=== PATIENT | male | born 1940 | race Caucasian/White ===

== ENCOUNTER 2018-10-15 11:43 | Emergency (ER) | payer OTHER, MEDICARE, BC ==
--- NOTE | 2018-10-15 12:38 | CR ---
Clinical history: 78-year-old male lower left chest pain (leaning over "gator", slipped and hurt a "pop"). Interpretation: PA chest and left rib detail films (x2) reveal subtle break (cortical "step") in the costochondral cartilage, lower left rib, anterolaterally. Osteopenia and apparent insufficiency compression fractures of vertebral bodies at the thoracolumbar juncture. No other left rib fracture, signs of underlying lung contusion, atelectasis or ipsilateral dependent pleural effusion. No pneumothorax or pneumomediastinum. Normal cardiac silhouette without cephalization of vascular flow, signs of alveolar edema or dependent pleural effusion. Dense curvilinear calcifications arch of the thoracic aorta. CONCLUSION: Suspicious (see above).
--- NOTE | 2018-10-15 13:02 | EDM.PDOC ---
ED HPI GENERAL MEDICAL PROBLEM - General Stated Complaint: RIBS GOT HURT AT WORK, LEFT SIDE Time Seen by Provider: 10/15/18 12:50 Source of Information: Reports: Patient History Limitations: Reports: No Limitations - History of Present Illness INITIAL COMMENTS - FREE TEXT/NARRATIVE: This 78 yo male patient reports to the ED with left anterior rib pain. The patient reports he was working for the [email or web address] when he fell against part of the mower. The patient reports he heard a "pop" during the fall and has experienced increased pain in the left ribs since the fall. The patient denies any additional symptoms or further concerns. Onset: Today Duration: Minutes: Location: Reports: Chest (left anterior chest) Quality: Reports: Ache, Sharp Severity: Moderate Improves with: Reports: None Worsens with: Reports: None Context: Reports: Trauma (fall on the left ribs) Associated Symptoms: Reports: No Other Symptoms Left Lower Chest Pain Score (Numeric/FACES): 8 Past Medical History Cardiovascular History: Reports: Hypertension Neurological History: Reports: CVA Endocrine/Metabolic History: Reports: Hyperthyroidism Oncologic (Cancer) History: Reports: Other (See Below) Other Oncologic History: throat - Past Surgical History HEENT Surgical History: Reports: Other (See Below) Other HEENT Surgeries/Procedures: one vocal cord removed Social & Family History - Tobacco Use Smoking Status *Q: Never Smoker - Recreational Drug Use Recreational Drug Use: No Review of Systems - Review of Systems Review Of Systems: ROS reveals no pertinent complaints other than HPI. ED EXAM, GENERAL - Physical Exam Exam: See Below Exam Limited By: No Limitations General Appearance: Alert, WD/WN, Moderate Distress Eye Exam: Bilateral Eye: EOMI, Normal Inspection, PERRL Ears: Normal External Exam, Normal Canal, Hearing Grossly Normal, Normal TMs Nose: Normal Inspection, Normal Mucosa, No Blood Throat/Mouth: Normal Inspection, Normal Lips, Normal Teeth, Normal Gums, Normal Oropharynx, Normal Voice, No Airway Compromise Head: Atraumatic, Normocephalic Neck: Normal Inspection, Supple, Non-Tender, Full Range of Motion Respiratory/Chest: No Respiratory Distress, Lungs Clear, Normal Breath Sounds, No Accessory Muscle Use, Other (left lower rib tenderness) Cardiovascular: Normal Peripheral Pulses, Regular Rate, Rhythm, No Edema, No Gallop, No JVD, No Murmur, No Rub GI/Abdominal: Normal Bowel Sounds, Soft, Non-Tender, No Organomegaly, No Distention, No Abnormal Bruit, No Mass (Male) Exam: Deferred Rectal (Males) Exam: Deferred Back Exam: Normal Inspection, Full Range of Motion, NT Extremities: Normal Inspection, Normal Range of Motion, Non-Tender, Normal Capillary Refill, No Pedal Edema Neurological: Alert, Oriented, CN II-XII Intact, Normal Cognition, Normal Gait, Normal Reflexes, No Motor/Sensory Deficits Psychiatric: Normal Affect, Normal Mood Skin Exam: Warm, Dry, Intact, Normal Color, No Rash Lymphatic: No Adenopathy Course - Vital Signs Last Recorded V/S: Last Vital Signs Temp 37.1 C 10/15/18 12:06 Pulse 70 10/15/18 12:06 Resp 16 10/15/18 12:06 BP 119/73 10/15/18 12:06 Pulse Ox 90 L 10/15/18 12:06 Departure - Departure Time of Disposition: 12:59 Disposition: Home, Self-Care 01 Condition: Fair Clinical Impression: Left rib fracture Qualifiers: Encounter type: initial encounter Rib fracture type: single rib Fracture type: closed Qualified Code(s): S22.32XA - Fracture of one rib, left side, initial encounter for closed fracture - Discharge Information *PRESCRIPTION DRUG MONITORING PROGRAM REVIEWED*: Not Applicable *COPY OF PRESCRIPTION DRUG MONITORING REPORT IN PATIENT RUSLAN: Not Applicable Instructions: Rib Fracture, [id number] Forms: ED Department Discharge Care Plan Goals: The patient was advised of the examination and x-ray results during the visit. The patient was encouraged to rest and relax. The patient was encouraged to take Tylenol or ibuprofen for temporary symptom relief. If the patient has any additional symptoms or concerns, the patient should either return to the emergency department or visit his primary care facility.
== END 2018-10-15 13:11 | disposition home or self-care (01) ==
LOC: DL.ED 11:43
DX: S22.32XA Fracture of one rib, left side, initial encounter for closed fracture (principal); I10 Essential (primary) hypertension; Z86.73 Personal history of transient ischemic attack (TIA), and cerebral infarction without residual deficits; W19.XXXA Unspecified fall, initial encounter; Y99.0 Civilian activity done for income or pay
CPT/HCPCS: 71101-LT; 99283-25

== ENCOUNTER 2019-07-31 06:41 | Emergency (ER) | payer MEDICARE, BC ==
--- NOTE | 2019-07-31 07:06 | EDM.PDOC ---
ED HPI GENERAL MEDICAL PROBLEM - General Chief Complaint: Genitourinary Problem Stated Complaint: NEEDS CATHEDER PUT IN Time Seen by Provider: 07/31/19 07:05 Source of Information: Reports: Patient, Family (), RN, RN Notes Reviewed History Limitations: Reports: No Limitations - History of Present Illness INITIAL COMMENTS - FREE TEXT/NARRATIVE: Pt presents to ER from home by POV with c/o being unable to pass any urine. Pt state symptoms began about a week ago with urinary frequency, urgency, and a weak urine stream. He was seen in clinic by Dr. Christopher on 07/29/19 and diagnosed with a UTI which was treated with Rocephin 1g IM x1 in clinic and an Rx for Doxycycline. Pt states his symptoms have worsened and his urine stream decreased to "dribbling" yesterday. He was referred to urology in [place], and was to have a CT Abd/Pelvis followed by an appointment with the urologist, but he cancelled due to winter road conditions. He denies fever or chills. Admits to B/L flank pain. Pt reports Hx of "prostate problems", and kidney stones. Onset: Gradual Duration: Constant, Getting Worse Location: Reports: Other (Urinary) Quality: Reports: Ache, Pressure Severity: Moderate Improves with: Reports: Other (Urination) Worsens with: Reports: None Associated Symptoms: Reports: No Other Symptoms Flank Pain Score (Numeric/FACES): 6 - Related Data Allergies Allergy/AdvReac Type Severity Reaction Status Date / Time No Known Allergies Allergy Verified 07/31/19 07:06 Home Meds: Home Meds Acetaminophen 500 mg PO Q6H PRN 07/31/19 [History] Albuterol [Ventolin HFA] 2 puff INH Q6H PRN 07/31/19 [History] Aspirin [Halfprin] 81 mg PO DAILY 07/31/19 [History] Doxycycline [Doxycycline Hyclate] 100 mg PO BID 07/31/19 [History] Levothyroxine 175 mcg PO ACBREAKFAST 07/31/19 [History] Metoprolol Succinate [Toprol XL 100mg] 100 mg PO BEDTIME 07/31/19 [History] Montelukast [Singulair] 10 mg PO BEDTIME 07/31/19 [History] Multivitamin [Daily Kary] 1 each PO DAILY 07/31/19 [History] Omeprazole 20 mg PO DAILY 07/31/19 [History] Polyethylene Glycol [Polyox Wsr-301] 8 oz PO ASDIRECTED 07/31/19 [History] Tamsulosin [Flomax] 0.4 mg PO DAILY 07/31/19 [History] cloNIDine [Catapres] 0.1 mg PO BID 07/31/19 [History] Past Medical History Cardiovascular History: Reports: Hypertension Respiratory History: Reports: COPD Genitourinary History: Reports: Prostate Disorder, Renal Calculus, Retention, Urinary Neurological History: Reports: CVA Endocrine/Metabolic History: Reports: Hyperthyroidism Oncologic (Cancer) History: Reports: Other (See Below) Other Oncologic History: throat - Past Surgical History HEENT Surgical History: Reports: Other (See Below) Other HEENT Surgeries/Procedures: one vocal cord removed Social & Family History - Family History Family Medical History: Noncontributory - Tobacco Use Smoking Status *Q: Former Smoker Tobacco Use Within Last Twelve Months: Cigarettes - Living Situation & Occupation Living situation: Reports: , with Spouse ED ROS GENERAL - Review of Systems Review Of Systems: Comprehensive ROS is negative, except as noted in HPI. ED EXAM, RENAL/ - Physical Exam Exam: See Below Exam Limited By: No Limitations General Appearance: Alert, WD/WN, No Apparent Distress Eye Exam: Bilateral Eye: Normal Inspection (No scleral icterus) Throat/Mouth: Normal Inspection Head: Atraumatic, Normocephalic Respiratory/Chest: No Respiratory Distress Cardiovascular: Regular Rate, Rhythm, No Edema GI/Abdominal: Normal Bowel Sounds, Soft, No Organomegaly, No Distention, No Abnormal Bruit, No Mass, Pelvis Stable, Tender (mild suprapubic tenderness, no palpable urinary bladder distention). No: Guarding, Rigid, Rebound Rectal (Males) Exam: Deferred Back Exam: CVA Tenderness (L) (mild), CVA Tenderness (R) (mild). No: Vertebral Tenderness Extremities: Normal Inspection Neurological: Alert, Oriented, No Motor/Sensory Deficits Psychiatric: Normal Mood Skin Exam: Warm, Dry, Intact, Normal Color, No Rash Course - Vital Signs Last Recorded V/S: Last Vital Signs Temp 98.2 F 07/31/19 07:02 Pulse 94 07/31/19 07:02 Resp 18 07/31/19 07:02 BP 106/65 07/31/19 07:02 Pulse Ox 93 L 07/31/19 07:02 - Orders/Labs/Meds Orders: Active Orders 24 hr Category Date Time Status Insert Swift Catheter [Insert Urinary Catheter] [OM.PC] Care 07/31/19 07:17 Ordered Stat Urinary Catheter Assessment [RC] ASDIRECTED Care 07/31/19 07:19 Active Abdomen Pelvis wo Cont [CT] Stat Exams 07/31/19 08:20 Taken CULTURE URINE [RM] Stat Lab 07/31/19 07:58 Received Labs: Laboratory Tests 07/31/19 07/31/19 07/31/19 Range/Units 07:38 07:38 07:58 WBC 16.8 H (5.0-10.0) 10^3/uL RBC 4.82 (4.6-6.2) 10^6/uL Hgb 14.3 (14.0-18.0) g/dL Hct 42.4 (40.0-54.0) % MCV 88.0 (80-100) fL MCH 29.7 (27.0-34.0) pg MCHC 33.7 (33.0-35.0) g/dL Plt Count 208 (150-450) 10^3/uL Neut % (Auto) 86.7 H (42.2-75.2) % Lymph % (Auto) 4.5 L (20.5-50.1) % [place] % (Auto) 8.5 H (2-8) % Eos % (Auto) 0.1 L (1.0-3.0) % Baso % (Auto) 0.2 (0.0-1.0) % Sodium 136 (135-145) mmol/L Potassium 3.8 (3.6-5.0) mmol/L Chloride 102 (101-111) mmol/L Carbon Dioxide 26.0 (21.0-31.0) mmol/L Anion Gap 11.8 BUN 24 H (7-18) mg/dL Creatinine 1.0 (0.6-1.3) mg/dL Est Cr Clr Drug Dosing 66.82 mL/min Estimated GFR (MDRD) > 60 Glucose 187 H (74-105) mg/dL Calcium 8.8 (8.4-10.2) mg/dl Urine Color Yellow (YELLOW) Urine Appearance Slightly cloudy (CLEAR) Urine pH 6.0 (5.0-9.0) Ur Specific [place] 1.025 (1.005-1.030) Urine Protein 100 H (NEGATIVE) Urine Glucose (UA) 100 H (NEGATIVE) Urine Ketones Trace H (NEGATIVE) Urine Occult Blood Large H (NEGATIVE) Urine Nitrite Negative (NEGATIVE) Urine Bilirubin Small H (NEGATIVE) Urine Urobilinogen 0.2 (0.2-1.0) mg/dL Ur Leukocyte Esterase Small H (NEGATIVE) Urine RBC 50-75 H /HPF Urine WBC 10-20 H (0-5/HPF) /HPF Ur Epithelial Cells Moderate H (NOT SEEN) /HPF Urine Bacteria Few (0-FEW/HPF) /HPF Urine Mucus Occasional (NOT SEEN) /LPF - Radiology Interpretation Free Text/Narrative:: CT Abd/Pelvis: images pushed to [facility]. See radiologist's report. - Re-Assessments/Exams Free Text/Narrative Re-Assessment/Exam: 07/31/19 08:28 The pt informs me he has missed his CT Abd/Pelvic today. Today his urine is bloody, but does not look infected. I will obtain the CT here and push it to the [facility] so that he can keep the urology appointment for this afternoon. I will leave the Swift in so that he doesn't have to stop repeatedly to urinate on the trip to today, and the urologist can remove the catheter in clinic he indicated. Departure - Departure Time of Disposition: 09:21 Disposition: Home, Self-Care 01 Condition: Good Clinical Impression: Acute urinary retention, Flank pain Hematuria Qualifiers: Hematuria type: gross Qualified Code(s): R31.0 - Gross hematuria - Discharge Information *PRESCRIPTION DRUG MONITORING PROGRAM REVIEWED*: No *COPY OF PRESCRIPTION DRUG MONITORING REPORT IN PATIENT RUSLAN: No Instructions: Acute Urinary Retention, Male, [id number], Indwelling Urinary Catheter Care, Adult, Flank Pain, Adult, Hematuria, Adult Forms: ED Department Discharge Additional Instructions: Rx: Hydrocodone APAP 5mg/325mg *Do not drive while taking this medication. Drink plenty of water. Follow up today with the urologist as scheduled. Your CT scan has been electronically pushed to the [facility] P[facility] imaging system in [place]. Sepsis Event Note - Focused Exam Vital Signs: Vital Signs Temp Pulse Resp BP Pulse Ox 07/31/19 07:02 98.2 F 94 18 106/65 93 L Date Exam was Performed: 07/31/19 Time Exam was Performed: 09:20 - My Orders Last 24 Hours: My Active Orders 07/31/19 07:17 Insert Swift Catheter [Insert Urinary Catheter] [OM.PC] Stat 07/31/19 07:19 Urinary Catheter Assessment [RC] ASDIRECTED 07/31/19 07:58 CULTURE URINE [RM] Stat 07/31/19 08:20 Abdomen Pelvis wo Cont [CT] Stat - Assessment/Plan Last 24 Hours: My Active Orders 07/31/19 07:17 Insert Swift Catheter [Insert Urinary Catheter] [OM.PC] Stat 07/31/19 07:19 Urinary Catheter Assessment [RC] ASDIRECTED 07/31/19 07:58 CULTURE URINE [RM] Stat 07/31/19 08:20 Abdomen Pelvis wo Cont [CT] Stat
[2019-07-31 08:05] LABS: ANION GAP 11.8; CHLORIDE,CL 102 mmol/L (101-111); SODIUM,NA 136 mmol/L (135-145)
== END 2019-07-31 09:37 | disposition home or self-care (01) ==
LOC: DL.ED 06:41
DX: R33.9 Retention of urine, unspecified (principal); R31.0 Gross hematuria; I10 Essential (primary) hypertension; J44.9 Chronic obstructive pulmonary disease, unspecified; N42.9 Disorder of prostate, unspecified; Z86.73 Personal history of transient ischemic attack (TIA), and cerebral infarction without residual deficits; Z79.82 Long term (current) use of aspirin; Z79.899 Other long term (current) drug therapy; Z87.891 Personal history of nicotine dependence
CPT/HCPCS: 36415; 51702; 74176; 80048; 81001; 85025; 87086; 99283; 99284-25

== ENCOUNTER 2023-03-10 12:04 | Inpatient (IN) | payer MEDICARE, BC ==
[2023-03-10] MEDS ORDERED: Sodium Chloride 0.9% 10 ML Syringe FLUSH PRN (12:18)
[2023-03-10] MEDS ORDERED: Magnesium Sulfate/Water 2 GM in Premix Bag 1 BAG IV ONE (12:18)
[2023-03-10] MEDS ORDERED: methylPREDNISolone Sodium Succinate 125 MG/2 ML SDV IVPUSH ONE (12:19)
[2023-03-10] MEDS: Albuterol/Ipratropium 3.0-0.5 MG/3 ML Neb Soln NEB ONE ×2 (12:27→14:11)
[2023-03-10 12:37] LABS: HEMOGLOBIN 16.3 g/dL (14.0-18.0); MEAN CORPUSCULAR HEMOGLOBIN 30.9 pg (27.0-34.0); MEAN CORPUSCULAR HGB CONC 33.3 g/dL (33.0-35.0); PLATELET COUNT,PLT 218 10^3/uL (150-450); RED BLOOD CELL COUNT 5.27 10^6/uL (4.6-6.2); WHITE BLOOD CELL COUNT,WBC 8.8 10^3/uL (5.0-10.0)
[2023-03-10 12:39] LABS: BASOPHILS PERCENT AUTO 0.1 % (0.0-1.0); EOSINOPHILS PERCENT AUTO 0.1 % (1.0-3.0); NEUTROPHILS PERCENT AUTO 66.8 % (42.2-75.2)
[2023-03-10 12:53] LABS: ALANINE AMINOTRANSFERASE,ALT 40 U/L (16-63); ALBUMIN 3.3 g/dL (3.4-5.0); ALKALINE PHOSPHATASE 86 U/L (46-116); ANION GAP 11.1 mEq/L (7-13); ASPARTATE AMNIOTRANSFERASE,AST 25 U/L (15-37); BILIRUBIN TOTAL 0.4 mg/dL (0.2-1.0); BLOOD UREA NITROGEN,BUN 15 mg/dL (7-18); BUN/CREATININE RATIO 16.5 (No establ ref range); C-REACTIVE PROTEIN 2.93 ng/dL (<=0.30); CALCIUM 8.6 mg/dL (8.5-10.1); CARBON DIOXIDE,CO2 34 mmol/L (21-32); CHLORIDE,CL 98 mmol/L (98-107); CREATININE 0.91 mg/dL (0.70-1.30); GLUCOSE RANDOM 113 mg/dL (70-99); POTASSIUM,K 4.1 mmol/L (3.5-5.1); PROTEIN TOTAL,TP 7.1 g/dL (6.4-8.2); SODIUM,NA 139 mmol/L (136-145)
[2023-03-10 12:56] LABS: LACTIC ACID 1.1 mmol/L (0.4-2.0)
[2023-03-10 13:03] LABS: A/G RATIO 0.87; ESTIMATED GFR 85 mL/min (>=60)
[2023-03-10 13:14] LABS: LYMPHOCYTES % ATYPICAL MANUAL 3 %; LYMPHOCYTES PERCENT MAN 19 % (20-50); MONOCYTES PERCENT MAN 8 % (2-8); SEG NEUTROPHILS PERCENT MAN 70 % (42-75)
[2023-03-10] MEDS ORDERED: cefTRIAXone 2 GM Vial IVPUSH ONE (13:24)
[2023-03-10] MEDS ORDERED: Azithromycin 250 MG Tab PO ONE (13:43)
[2023-03-10] MEDS ORDERED: Albuterol/Ipratropium 3.0-0.5 MG/3 ML Neb Soln ONE (14:08)
[2023-03-10] MEDS ORDERED: Albuterol 0.083% 2.5 MG/3 ML Neb Soln NEB ONE (14:11)
[2023-03-10] MEDS ORDERED: Zolpidem 5 MG Tab PO PRN (14:45)
[2023-03-10] MEDS ORDERED: oxyCODONE 5 MG Tab PO PRN (14:45)
[2023-03-10] MEDS ORDERED: Docusate Sodium 100 MG Cap PO PRN (14:45)
[2023-03-10] MEDS ORDERED: Ondansetron 4 MG Tab.DIS PO PRN (14:45)
[2023-03-10] MEDS ORDERED: POLYETHYLENE GLYCOL 1 GM PO SCH (15:00)
[2023-03-10] MEDS: Albuterol/Ipratropium 3.0-0.5 MG/3 ML Neb Soln NEB PRN (17:20)
[2023-03-10] MEDS: methylPREDNISolone Sodium Succinate 125 MG/2 ML SDV IVPUSH SCH (19:57)
[2023-03-10] MEDS: Metoprolol Succinate 50 MG Tab.ER PO SCH (20:56)
[2023-03-10] MEDS: Montelukast 10 MG Tab PO SCH (20:57)
[2023-03-10] MEDS: Acetaminophen 500 MG Tab PO PRN (20:57)
[2023-03-10] MEDS ORDERED: cloNIDine 0.1 MG Tab PO ONE ×2 (21:15→23:45)
[2023-03-11] MEDS: methylPREDNISolone Sodium Succinate 125 MG/2 ML SDV IVPUSH SCH ×3 (05:03→20:17)
[2023-03-11] MEDS ORDERED: Non-Formulary Medication 1 Each (Levothyroxine [Levothyroxine] 175 MCG Tablet) PO SCH (06:00)
[2023-03-11 06:19] LABS: HEMATOCRIT 46.1 % (40.0-54.0); HEMOGLOBIN 15.8 g/dL (14.0-18.0); MEAN CORPUSCULAR HEMOGLOBIN 31.2 pg (27.0-34.0); MEAN CORPUSCULAR HGB CONC 34.3 g/dL (33.0-35.0); MEAN CORPUSCULAR VOLUME 90.9 fL (80-100); RED BLOOD CELL COUNT 5.07 10^6/uL (4.6-6.2); WHITE BLOOD CELL COUNT,WBC 4.9 10^3/uL (5.0-10.0)
[2023-03-11 06:30] LABS: ANION GAP 11.5 mEq/L (7-13); CALCIUM 8.3 mg/dL (8.5-10.1); CREATININE 0.78 mg/dL (0.70-1.30); EST CRCL DRUG DOSING (CG) 81.52 mL/min; POTASSIUM,K 4.5 mmol/L (3.5-5.1)
[2023-03-11] MEDS: Albuterol/Ipratropium 3.0-0.5 MG/3 ML Neb Soln NEB PRN ×4 (07:17→20:18)
[2023-03-11] MEDS: Enoxaparin 40 MG/0.4 ML Syringe SUBCUT SCH (09:00)
[2023-03-11] MEDS: Aspirin 81 MG Tab.EC PO SCH (09:00)
[2023-03-11] MEDS ORDERED: Benzonatate 100 MG Cap PO PRN (09:00)
[2023-03-11] MEDS: Nicotine 14 MG/24 Hr Patch TRDERM SCH (09:40)
[2023-03-11] MEDS: Formoterol/Mometasone 200-5 MCG 8.8 GM Inhaler IH SCH ×2 (09:58→18:04)
[2023-03-11] MEDS ORDERED: cloNIDine 0.1 MG Tab PO SCH (10:15)
[2023-03-11] MEDS ORDERED: Levothyroxine 100 MCG Tab PO SCH (10:30)
[2023-03-11] MEDS ORDERED: Tamsulosin 0.4 MG Cap.ER PO SCH (10:30)
[2023-03-11] MEDS ORDERED: Levothyroxine 75 MCG Tab PO SCH (10:30)
[2023-03-11] MEDS: Levothyroxine 75 MCG Tab PO SCH (11:47)
[2023-03-11] MEDS: Levothyroxine 100 MCG Tab PO SCH (11:48)
[2023-03-11] MEDS: cloNIDine 0.1 MG Tab PO SCH ×2 (11:48→20:18)
[2023-03-11] MEDS: Tamsulosin 0.4 MG Cap.ER PO SCH ×2 (11:48→20:17)
[2023-03-11] MEDS: Azithromycin 250 MG Tab PO SCH (13:54)
[2023-03-11] MEDS: cefTRIAXone 1 GM Vial IVPUSH SCH (13:55)
[2023-03-11] MEDS: Metoprolol Succinate 50 MG Tab.ER PO SCH (20:17)
[2023-03-11] MEDS: Montelukast 10 MG Tab PO SCH (20:18)
[2023-03-12] MEDS: Albuterol/Ipratropium 3.0-0.5 MG/3 ML Neb Soln NEB PRN ×4 (01:36→13:05)
[2023-03-12] MEDS: Acetaminophen 500 MG Tab PO PRN (04:41)
[2023-03-12] MEDS: methylPREDNISolone Sodium Succinate 125 MG/2 ML SDV IVPUSH SCH ×2 (04:41→13:57)
[2023-03-12] MEDS: Levothyroxine 75 MCG Tab PO SCH (05:39)
[2023-03-12] MEDS: Levothyroxine 100 MCG Tab PO SCH (05:39)
[2023-03-12] MEDS: Formoterol/Mometasone 200-5 MCG 8.8 GM Inhaler IH SCH (06:34)
[2023-03-12] MEDS: Nicotine 14 MG/24 Hr Patch TRDERM SCH (09:13)
[2023-03-12] MEDS: cloNIDine 0.1 MG Tab PO SCH (09:14)
[2023-03-12] MEDS: Aspirin 81 MG Tab.EC PO SCH (09:15)
[2023-03-12] MEDS: Enoxaparin 40 MG/0.4 ML Syringe SUBCUT SCH (09:15)
[2023-03-12] MEDS: Azithromycin 250 MG Tab PO SCH ×3 (09:15→09:27)
[2023-03-12] MEDS: Tamsulosin 0.4 MG Cap.ER PO SCH (09:15)
[2023-03-12] MEDS: cefTRIAXone 1 GM Vial IVPUSH SCH (17:07)
== END 2023-03-12 15:15 | disposition home health service (06) | DRG 193 ==
LOC: DL.ED 12:04 → DL.MS 13:47
PROVIDERS: ADMIT Hospitalist; ATTEND Hospitalist
DX: J18.9 Pneumonia, unspecified organism (principal); J96.01 Acute respiratory failure with hypoxia; J44.0 Chronic obstructive pulmonary disease with (acute) lower respiratory infection; J44.1 Chronic obstructive pulmonary disease with (acute) exacerbation; E05.90 Thyrotoxicosis, unspecified without thyrotoxic crisis or storm; J44.9 Chronic obstructive pulmonary disease, unspecified; I10 Essential (primary) hypertension; E03.9 Hypothyroidism, unspecified; Z99.81 Dependence on supplemental oxygen; F17.210 Nicotine dependence, cigarettes, uncomplicated; Z79.82 Long term (current) use of aspirin; Z79.899 Other long term (current) drug therapy; Z86.73 Personal history of transient ischemic attack (TIA), and cerebral infarction without residual deficits
CPT/HCPCS: 36415; 71045; 80048; 80053; 83605; 85025; 85027; 86140; 87040; 94010; 94060; 94640; 94664; 94667; 94668; 94760; 96365; 96375; 99223; 99233; 99239; 99284; 99285-25; A9270-GY; J0696; J1650; J2930; J3475; J3490; J7620-GY

== ENCOUNTER 2023-12-11 19:48 | Emergency (ER) | payer MEDICARE, BC ==
[2023-12-11 20:03] LABS: BASOPHILS PERCENT AUTO 0.8 % (0.0-1.0); EOSINOPHILS PERCENT AUTO 1.2 % (1.0-3.0); HEMATOCRIT 21.5 % (40.0-54.0); LYMPHOCYTES PERCENT AUTO 19.9 % (20.5-50.1); MEAN CORPUSCULAR HEMOGLOBIN 20.7 pg (27.0-34.0); MEAN CORPUSCULAR HGB CONC 28.8 g/dL (33.0-35.0); MEAN CORPUSCULAR VOLUME 71.9 fL (80-100); MONOCYTES PERCENT AUTO 15.2 % (2-8); NEUTROPHILS PERCENT AUTO 62.9 % (42.2-75.2); PLATELET COUNT,PLT 445 10^3/uL (150-450); RED BLOOD CELL COUNT 2.99 10^6/uL (4.6-6.2); WHITE BLOOD CELL COUNT,WBC 7.8 10^3/uL (5.0-10.0)
[2023-12-11 20:06] LABS: HEMOGLOBIN 6.2 g/dL (14.0-18.0)
[2023-12-11] MEDS: Iopamidol 612 MG/ML 100 ML Bottle IVPUSH ONE (20:07)
[2023-12-11] MEDS ORDERED: Pantoprazole 40 MG in Sodium Chloride 0.9% 100 ML IV SCH ×2 (20:15→20:45)
[2023-12-11 20:26] LABS: A/G RATIO 1.1; ALANINE AMINOTRANSFERASE,ALT 18 U/L (16-63); ALBUMIN 3.6 g/dL (3.4-5.0); ALKALINE PHOSPHATASE 75 U/L (46-116); ANION GAP 12.3 mEq/L (7-13); ASPARTATE AMNIOTRANSFERASE,AST 10 U/L (15-37); BILIRUBIN TOTAL 0.3 mg/dL (0.2-1.0); BLOOD UREA NITROGEN,BUN 20 mg/dL (7-18); BUN/CREATININE RATIO 20.8 (No establ ref range); CALCIUM 8.4 mg/dL (8.5-10.1); CARBON DIOXIDE,CO2 31 mmol/L (21-32); CHLORIDE,CL 101 mmol/L (98-107); CREATININE 0.96 mg/dL (0.70-1.30); GLUCOSE RANDOM 124 mg/dL (70-99); MAGNESIUM 1.9 mg/dL (1.8-2.4); POTASSIUM,K 4.3 mmol/L (3.5-5.1); SODIUM,NA 140 mmol/L (136-145)
[2023-12-11 20:27] LABS: ESTIMATED GFR 79 mL/min (>=60); ETHANOL BLOOD MEDICAL < 3 mg/dL (0)
[2023-12-11] MEDS: Pantoprazole 40 MG Vial IVPUSH ONE (20:32)
[2023-12-11] MEDS: Sodium Chloride 0.9% 1,000 ML IV ONE (20:32)
[2023-12-11 21:19] LABS: APPEARANCE,URINE CLOUDY (CLEAR); BILIRUBIN,URINE NEGATIVE (NEGATIVE); COLOR,URINE RED (YELLOW); GLUCOSE,URINE NEGATIVE (NEGATIVE); KETONES,URINE NEGATIVE (NEGATIVE); LEUKOCYTE ESTERASE,URINE NEGATIVE (NEGATIVE); NITRITE,URINE POSITIVE (NEGATIVE); OCCULT BLOOD,URINE LARGE (NEGATIVE); PH,URINE 5.5 (5.0-9.0); PROTEIN,URINE >=300 (NEGATIVE); UROBILINOGEN,URINE 0.2 mg/dL (0.2-1.0)
[2023-12-11 21:43] LABS: BACTERIA,URINE FEW /HPF (0-FEW/HPF); EPITHELIAL CELLS,URINE NOT SEEN /HPF (NOT SEEN); RBC,URINE PACKED /HPF (0-5); WBC,URINE 0-5 /HPF (0-5/HPF)
[2023-12-11] MEDS: Ondansetron 4 MG/2 ML SDV IVPUSH ONE (23:05)
[2023-12-11] MEDS: Morphine 2 MG/ML SYRINGE IVPUSH ONE (23:05)
== END 2023-12-11 23:57 ==
LOC: DL.ED 19:48
DX: S09.90XA Unspecified injury of head, initial encounter (principal); D50.9 Iron deficiency anemia, unspecified; E86.9 Volume depletion, unspecified; C67.9 Malignant neoplasm of bladder, unspecified; I10 Essential (primary) hypertension; J44.9 Chronic obstructive pulmonary disease, unspecified; E05.90 Thyrotoxicosis, unspecified without thyrotoxic crisis or storm; F17.200 Nicotine dependence, unspecified, uncomplicated; Z79.82 Long term (current) use of aspirin; Z79.899 Other long term (current) drug therapy; Z79.890 Hormone replacement therapy; Z79.2 Long term (current) use of antibiotics; W19.XXXA Unspecified fall, initial encounter; Y92.009 Unspecified place in unspecified non-institutional (private) residence as the place of occurrence of the external cause
CPT/HCPCS: 36415; 36430; 70450; 71260; 72125; 74177; 80053; 80307; 81001; 82947; 83735; 84484; 85025; 86850; 86900; 86901; 86920; 86922; 87086; 93005; 96361; 96374; 96375; 99285; C9113; J2270; J2405; J7030; P9016; Q9967

== ENCOUNTER 2023-12-27 08:45 | Inpatient (IN) | payer MEDICARE, BC ==
[2023-12-27] MEDS ORDERED: HYDROmorphone 0.5 MG/0.5 ML Syringe IVPUSH PRN (13:34)
[2023-12-27] MEDS ORDERED: Pantoprazole 40 MG Vial IVPUSH PRN (13:34)
[2023-12-27] MEDS ORDERED: Sodium Chloride 0.9% 10 ML Syringe FLUSH PRN (13:34)
[2023-12-27] MEDS ORDERED: Naloxone 2 MG/2 ML Syringe IVPUSH PRN (13:34)
[2023-12-27] MEDS ORDERED: hydrALAZINE 20 MG/ML SDV IV PRN (13:34)
[2023-12-27] MEDS ORDERED: Ondansetron 4 MG/2 ML SDV IVPUSH PRN (13:34)
[2023-12-27] MEDS: Albuterol/Ipratropium 3.0-0.5 MG/3 ML Neb Soln INH SCH (15:00)
[2023-12-27] MEDS: Formoterol/Mometasone 200-5 MCG 8.8 GM Inhaler IH SCH (17:48)
[2023-12-27] MEDS: guaiFENesin 600 MG Tab.ER PO SCH (20:01)
[2023-12-27] MEDS: Metoprolol Succinate 50 MG Tab.ER PO SCH (20:01)
[2023-12-27] MEDS: Tamsulosin 0.4 MG Cap.ER PO SCH (20:01)
[2023-12-27] MEDS: Montelukast 10 MG Tab PO SCH (20:02)
[2023-12-27] MEDS: Check Patch TRDERM SCH (20:03)
[2023-12-27] MEDS: Acetaminophen 325 MG Tab PO PRN (22:54)
[2023-12-28] MEDS: Levothyroxine 125 MCG Tab PO SCH (05:14)
[2023-12-28] MEDS: Fluconazole 100 MG Tab PO SCH (08:22)
[2023-12-28] MEDS: predniSONE 20 MG Tab PO SCH (08:24)
[2023-12-28] MEDS: Saccharomyces Boulardii (Probiotic) 250 MG Cap PO SCH (08:25)
[2023-12-28] MEDS: Aspirin 81 MG Tab.EC PO SCH (08:26)
[2023-12-28] MEDS: Finasteride 5 MG Tab PO SCH (08:28)
[2023-12-28] MEDS: Nicotine 21 MG/24 Hr Patch TRDERM SCH (08:28)
[2023-12-28] MEDS: Pantoprazole 40 MG Tab.CR PO SCH (15:17)
[2023-12-28] MEDS: Albuterol/Ipratropium 3.0-0.5 MG/3 ML Neb Soln INH SCH (17:32)
[2023-12-28] MEDS: Calcium Carbonate 500 MG Tab.Chew PO PRN (20:30)
[2023-12-29] MEDS: Melatonin 3 MG Tab PO PRN (01:25)
[2023-12-29] MEDS: Sennosides/Docusate Sodium 50-8.6 MG Tab PO PRN (13:39)
[2023-12-29] MEDS: Polyethylene Glycol 3350 Powder 17 GM Packet PO PRN (13:39)
[2023-12-29] MEDS: ALPRAZolam 0.25 MG Tab PO PRN (15:12)
[2023-12-29] MEDS: Benzonatate 100 MG Cap PO PRN (21:00)
[2023-12-30] MEDS: Acetaminophen/HYDROcodone 325-5 MG Tab PO PRN
[2023-12-30] MEDS: Magnesium Hydroxide 400 MG/5 ML Susp 30 ML Cup PO PRN (08:14)
[2023-12-31 12:55] LABS: APPEARANCE,URINE SLIGHTLY CLOUDY (CLEAR); BILIRUBIN,URINE NEGATIVE (NEGATIVE); COLOR,URINE YELLOW (YELLOW); GLUCOSE,URINE NEGATIVE (NEGATIVE); KETONES,URINE NEGATIVE (NEGATIVE); LEUKOCYTE ESTERASE,URINE SMALL (NEGATIVE); NITRITE,URINE NEGATIVE (NEGATIVE); OCCULT BLOOD,URINE LARGE (NEGATIVE); PROTEIN,URINE 100 (NEGATIVE); UROBILINOGEN,URINE 0.2 mg/dL (0.2-1.0)
[2023-12-31 13:43] LABS: BACTERIA,URINE MODERATE /HPF (0-FEW/HPF); EPITHELIAL CELLS,URINE FEW /HPF (NOT SEEN); RBC,URINE >100 /HPF (0-5); WBC,URINE 50-75 /HPF (0-5/HPF)
[2023-12-31 13:44] LABS: MUCUS,URINE OCCASIONAL /LPF (NOT SEEN)
[2023-12-31] MEDS: Sodium Chloride 0.9% 1,000 ML IV ONE (18:44)
[2023-12-31] MEDS: Lidocaine 5% 700 MG Patch TOP SCH (18:45)
[2023-12-31] MEDS: Midodrine 5 MG Tab PO SCH (18:45)
[2023-12-31] MEDS: Sodium Chloride 0.9% 10 ML Syringe FLUSH SCH (20:41)
[2024-01-01 06:21] LABS: BASOPHILS PERCENT AUTO 0.2 % (0.0-1.0); EOSINOPHILS PERCENT AUTO 0.5 % (1.0-3.0); HEMATOCRIT 28.8 % (40.0-54.0); HEMOGLOBIN 8.6 g/dL (14.0-18.0); LYMPHOCYTES PERCENT AUTO 13.7 % (20.5-50.1); MEAN CORPUSCULAR HEMOGLOBIN 23.6 pg (27.0-34.0); MEAN CORPUSCULAR HGB CONC 29.9 g/dL (33.0-35.0); MEAN CORPUSCULAR VOLUME 78.9 fL (80-100); MONOCYTES PERCENT AUTO 13.4 % (2-8); NEUTROPHILS PERCENT AUTO 72.2 % (42.2-75.2); PLATELET COUNT,PLT 499 10^3/uL (150-450); RED BLOOD CELL COUNT 3.65 10^6/uL (4.6-6.2); WHITE BLOOD CELL COUNT,WBC 12.5 10^3/uL (5.0-10.0)
[2024-01-01 06:35] LABS: ANION GAP 4.4 mEq/L (7-13); CALCIUM 8.5 mg/dL (8.5-10.1); CREATININE 0.8 mg/dL (0.70-1.30); EST CRCL DRUG DOSING (CG) 73.51 mL/min; POTASSIUM,K 4.4 mmol/L (3.5-5.1)
[2024-01-01] MEDS ORDERED: Albuterol/Ipratropium 3.0-0.5 MG/3 ML Neb Soln INH PRN (07:22)
[2024-01-01] MEDS: [UNRECOGNIZED DRUG - REMARK] TRDERM SCH (22:37)
[2024-01-02] MEDS: Ferrous Sulfate 325 MG Tab PO SCH (08:43)
[2024-01-02] MEDS: Docusate Sodium 100 MG Cap PO SCH (09:58)
[2024-01-02] MEDS: Menthol/Zinc Oxide Ointment 113 GM Tube TOP PRN (21:13)
[2024-01-04] MEDS: Witch Hazel Medicated Pads 100/Jar TOP PRN (02:59)
== END 2024-01-04 14:00 | disposition home or self-care (01) | DRG 312 ==
LOC: DL.MS 13:37
PROVIDERS: ADMIT Internal Medicine; ATTEND Internal Medicine
DX: I95.2 Hypotension due to drugs (principal); B49 Unspecified mycosis; N39.0 Urinary tract infection, site not specified; I10 Essential (primary) hypertension; J44.9 Chronic obstructive pulmonary disease, unspecified; F17.210 Nicotine dependence, cigarettes, uncomplicated; Z66 Do not resuscitate; H54.7 Unspecified visual loss; N40.0 Benign prostatic hyperplasia without lower urinary tract symptoms; C67.9 Malignant neoplasm of bladder, unspecified; D50.9 Iron deficiency anemia, unspecified; R31.9 Hematuria, unspecified; Z79.899 Other long term (current) drug therapy; Z79.51 Long term (current) use of inhaled steroids; Z79.52 Long term (current) use of systemic steroids; Z86.73 Personal history of transient ischemic attack (TIA), and cerebral infarction without residual deficits; Z90.10 Acquired absence of unspecified breast and nipple
CPT/HCPCS: 36415; 51798; 80048; 81001; 85025; 87086; 94640; 94760; 97110-GO; 97110-GP; 97116-GP; 97161-GP; 97165-GO; 97530-GO; 97535-GO; 99305; A9270-GY; J3490; J7030; J7512; J7620-GY